=== PATIENT | male | born 1965 | race African-American/Black ===

== ENCOUNTER 2019-10-19 05:01 | Emergency (ER) | payer OTHER ==
[~2019-10-19] VITALS: Ht 170.2 cm; Wt 109.0 kg
[~2019-10-19 05:01] MED LIST: ASPI-630 PO; GLIP5TAB10 PO; LANS30CA PO; METF500T16 PO; PRAV20TA2 PO
[2019-10-19 05:50] VITALS: BP 141/78
--- NOTE | 2019-10-19 06:00 | PHYS DOC ---
Past Medical History Past Medical History: Arrhythmia, High Cholesterol, Hypertension Smoking Status: Current Every Day Smoker Alcohol Use: Rarely Drug Use: Marijuana Adult General Chief Complaint Chief Complaint: DIARRHEA HPI HPI Patient is a 53 year old male presents with a chief complaint of diarrhea. Patient states he had multiple episodes of diarrhea without blood yesterday. Patient denies any diarrhea today. Patient denies any associated abdominal d iscomfort. Patient states has associated generalized weakness. Patient was at work had significant generalized weakness so present to the emergency department for further evaluation. Review of Systems Review of Systems Constitutional: Denies fever or chills [] Eyes: Denies change in visual acuity, redness, or eye pain [] HENT: Denies nasal congestion or sore throat [] Respiratory: Denies cough or shortness of breath [] Cardiovascular: No additional information not addressed in HPI [] GI: Denies abdominal pain, nausea, vomiting, bloody stools positive diarrhea : Denies dysuria or hematuria [] Musculoskeletal: Denies back pain or joint pain [] Integument: Denies rash or skin lesions [] Neurologic: Denies headache, focal weakness or sensory changes [] Endocrine: Denies polyuria or polydipsia [] All other systems were reviewed and found to be within normal limits, except as documented in this note. Allergies Allergies Allergies Coded Allergies Type Severity Reaction Last Updated Verified No Known Drug Allergies 05/18/17 No Physical Exam Physical Exam Constitutional: Well developed, well nourished, no acute distress, non-toxic rachel earance. [] HENT: Normocephalic, atraumatic, bilateral external ears normal, oropharynx moist, no oral exudates, nose normal. [] Eyes: PERRLA, EOMI, conjunctiva normal, no discharge. [] Neck: Normal range of motion, no tenderness, supple, no stridor. [] Cardiovascular:Heart rate regular rhythm, no murmur [] Lungs & Thorax: Bilateral breath sounds clear to auscultation [] Abdomen: Bowel sounds normal, soft, no tenderness, no masses, no pulsatile masses. [] Skin: Warm, dry, no erythema, no rash. [] Back: No tenderness, no CVA tenderness. [] Extremities: No tenderness, no cyanosis, no clubbing, ROM intact, no edema. [] Neurologic: Alert and oriented X 3, normal motor function, normal sensory function, no focal deficits noted. [] Psychologic: Affect normal, judgement normal, mood normal. [] EKG EKG [] Radiology/Procedures Radiology/Procedures [] Course & Med Decision Making Course & Med Decision Making Pertinent Labs and Imaging studies reviewed. (See chart for details) []Agent was evaluated for chief complaint. Based upon history of present illness and physical exam no emergent labs are imaging ordered. Patient was encouraged to increase by mouth fluids. Patient was discharged home with a work excuse advised to follow up with primary care physician in 2-3 days. Dragon Disclaimer Dragon Disclaimer This electronic medical record was generated, in whole or in part, using a voice recognition dictation system. Departure Departure Impression: Primary Impression: Diarrhea Disposition: HOME, SELF-CARE Condition: STABLE Referrals: NO PCP (PCP) Patient Instructions: Diarrhea KEVIN CLEVELAND DO Oct 19, 2019 06:00
== END 2019-10-19 06:18 | disposition home or self-care (01) ==
LOC: ER 05:01
DX: R19.7 Diarrhea, unspecified (principal); R53.1 Weakness; I49.8 Other specified cardiac arrhythmias; E78.00 Pure hypercholesterolemia, unspecified; I10 Essential (primary) hypertension; F12.90 Cannabis use, unspecified, uncomplicated; F17.200 Nicotine dependence, unspecified, uncomplicated
CPT/HCPCS: 99281

== ENCOUNTER 2021-01-06 18:36 | Emergency (ER) | payer BC ==
[~2021-01-06] VITALS: Ht 168.9 cm; Wt 104.0 kg
[2021-01-06] MEDS ORDERED: cloNIDine HCL 0.1 MG TABLET PO ONE (20:00)
--- NOTE | 2021-01-06 20:29 | PHYS DOC ---
Past Medical History Past Medical History: Hypertension Additional Past Medical Histor: htn previously controlled by weight loss Past Surgical History: Other Additional Past Surgical Histo: CARDIAC ablation Smoking Status: Current Every Day Smoker Alcohol Use: None Drug Use: Marijuana General Adult EDM: Chief Complaint: VISION PROBLEM HPI: HPI: Patient is a 55 year old male presented to ER due to headache, blurry vision off and on for several weeks. Patient was evaluated here on December 31, 2020 for the same problem, he had a CT scan his head was normal. Patient also had lab work done, did not show any acute problem. Patient has history of migraine headache and diabetic. Patient was advised to follow-up with eye doctor for further evaluation. Somehow he had not done yet. Patient came back today because of headache and blurry vision. This is not the worst headache of his life. Denies any cough or fever. Patient denies any chest pain, no abdominal pain. Patient says sometimes he see black spots or floaters on the right eye. Patient does wear contact lens Review of Systems: Review of Systems: Constitutional: Denies fever or chills. [] Eyes: Positive for blurry vision on The right eye HENT: Denies nasal congestion or sore throat. [] Respiratory: Denies cough or shortness of breath. [] Cardiovascular: Denies chest pain or edema. [] GI: Denies abdominal pain, nausea, vomiting, bloody stools or diarrhea. [] : Denies dysuria. [] Musculoskeletal: Denies back pain or joint pain. [] Integument: Denies rash. [] Neurologic: Positive for headache, no focal weakness or numbness. Endocrine: Denies polyuria or polydipsia. [] Lymphatic: Denies swollen glands. [] Psychiatric: Denies depression or anxiety. [] Heart Score: C/O Chest Pain: N/A Risk Factors: Risk Factors: DM, Current or recent (<one month) smoker, HTN, HLP, family history of CAD, obesity. Risk Scores: Score 0 - 3: 2.5% MACE over next 6 weeks - Discharge Home Score 4 - 6: 20.3% MACE over next 6 weeks - Admit for Clinical Observation Score 7 - 10: 72.7% MACE over next 6 weeks - Early Invasive Strategies Current Medications: Current Medications Medications (Trade) Dose Ordered Sig/Corinna Start Time Stop Time Status Last Admin Dose Admin Clonidine HCl (Catapres) 0.2 mg 1X ONCE 01/06/21 20:00 01/06/21 20:01 DC 01/06/21 20:04 0.2 MG Allergies: Allergies: Allergies Coded Allergies Type Severity Reaction Last Updated Verified No Known Drug Allergies 05/18/17 No Physical Exam: PE: Constitutional: Well developed, well nourished, no acute distress, non-toxic appearance. [] HENT: Normocephalic, atraumatic, bilateral external ears normal, oropharynx moist, no oral exudates, nose normal. [] Eyes: PERRLA, EOMI, conjunctiva normal, no discharge. [] Neck: Normal range of motion, no tenderness, supple, no stridor. [] Cardiovascular:Heart rate regular rhythm, no murmur [] Lungs & Thorax: Bilateral breath sounds clear to auscultation [] Abdomen: Bowel sounds normal, soft, no tenderness, no masses, no pulsatile m asses. [] Skin: Warm, dry, no erythema, no rash. [] Back: No tenderness, no CVA tenderness. [] Extremities: No tenderness, no cyanosis, no clubbing, ROM intact, no edema. [] Neurologic: Alert and oriented X 3, normal motor function, normal sensory function, no focal deficits noted. [] Psychologic: Affect normal, judgement normal, mood normal. [] Current Patient Data: Vital Signs: Vital Signs Date Time Temp Pulse Resp B/P (MAP) Pulse Ox O2 Delivery O2 Flow Rate FiO2 01/06/21 20:04 84 183/95 01/06/21 18:40 99.1 18 96 Room Air 99.1 EKG: EKG: [] Radiology/Procedures: Radiology/Procedures: [] Course & Med Decision Making: Course & Med Decision Making Pertinent Labs and Imaging studies reviewed. (See chart for details) This physician did a bedside ultrasound of right eyeball, There is no obvious retinal detachment observed. Discussed with the opthalmologist traffic division commanding officer, Dr. Robertson who recommended to discharge patient home, will see him in clinic this week. Patient's blood pressure was elevated, will pescribe low dose of norvasc. He will need to find a family physician for follow up. Patient was just seen here on December 31, 2020, had normal lab work and CT scan his head, there is no need for further evaluation at this time in the ER. Tomeka Disclaimer: Tomeka Disclaimer: This electronic medical record was generated, in whole or in part, using a voice recognition dictation system. Departure Departure Impression: Primary Impression: Hypertension Additional Impression: Blurry vision, right eye Disposition: HOME / SELF CARE / HOMELESS Condition: STABLE Referrals: NO PCP (PCP) Please call this EYE DOCTOR BELOW FOR FOLLOW UP IN 1-[address] Oren Robertson [address] [facility] [address] [place]. [address] Patient Instructions: Eye - Blurred Vision, Hypertension Additional Instructions: Thank you for visiting our Emergency Department. We appreciate you trusting us with your care. If any additional problems come up don't hesitate to return to visit us. Please follow up with your primary care provider so they can plan additional care if needed and know about the problem that you had. If symptoms worsen come back to the Emergency Department. Any concerning symptoms that start such as chest pain, shortness of air, weakness or numbness on one side of the body, running high fevers or any other concerning symptoms return to the ER. Please follow up with [facility] this week to reevaluate your blood pressure issue. [address] [facility], [address] [place] [address] Phone number: [phone] Scripts Amlodipine Besylate (NORVASC) 5 Mg Tablet 1 TAB PO DAILY, #30 TAB 1 Refill Prov: LYSSA ORTEGA DO 01/06/21 LYSSA ORTEGA DO January 06, 2021 20:29
[2021-01-06] MEDS ORDERED: AMLO5TAB4 PO ×2 (20:36→20:42)
[2021-01-06 21:10] VITALS: BP 153/91
== END 2021-01-06 21:12 | disposition home or self-care (01) ==
LOC: ER 18:36
DX: I10 Essential (primary) hypertension (principal); H53.8 Other visual disturbances; G43.909 Migraine, unspecified, not intractable, without status migrainosus; E11.9 Type 2 diabetes mellitus without complications; F17.200 Nicotine dependence, unspecified, uncomplicated
CPT/HCPCS: 99283

== ENCOUNTER 2021-02-09 18:06 | Emergency (ER) | payer BC ==
[~2021-02-09] VITALS: Ht 170.2 cm; Wt 96.6 kg
[~2021-02-09 18:06] MED LIST changes: +AMLO5TAB4 PO; +EMPA10TA PO; +GLIM4TAB8 PO; +LIPITOR80 MG PO; +LISI10TA16 PO; +[UNRECOGNIZED DRUG - CODE] OP
[2021-02-09] MEDS ORDERED: ONDANSETRON PF 4 MG/2 ML VIAL. IVP ONE (18:15)
[2021-02-09 18:35] LABS: BASO # 0.1 x10^3/uL (0.0-0.2); BASO % 1 % (0-3); EOS # 0.1 x10^3/uL (0.0-0.7); EOS % 1 % (0-3); HEMATOCRIT 40.4 % (39.0-53.0); HEMOGLOBIN 13.8 g/dL (13.0-17.5); LYMPH # 2.9 x10^3/uL (1.0-4.8); LYMPH % 17 % (24-48); MEAN CORPUSCULAR HEMOGLOBIN 33 pg (25-35); MEAN CORPUSCULAR HGB CONC 34 g/dL (31-37); MEAN CORPUSCULAR VOLUME 97 fL (79-100); MONO # 1.1 x10^3/uL (0.0-1.1); MONO % 6 % (0-9); NEUT # 13.2 x10^3/uL (1.8-7.7); NEUT % 76 % (31-73); PLATELET COUNT 305 x10^3/uL (140-400); RED BLOOD COUNT 4.17 x10^6/uL (4.30-5.70); WHITE BLOOD COUNT 17.5 x10^3/uL (4.0-11.0)
--- NOTE | 2021-02-09 18:43 | ED.ADGEN ---
Past Medical History Past Medical History: Diabetes-Type II, Hypertension Additional Past Medical Histor: htn previously controlled by weight loss Past Surgical History: Other Additional Past Surgical Histo: CARDIAC ablation Smoking Status: Current Every Day Smoker Alcohol Use: None Drug Use: Marijuana General Adult EDM: Chief Complaint: NEURO SYMPTOMS/DEFICITS HPI: HPI: Patient is a 55-year-old male who presents to the emergency room complaining of a sudden onset of dizziness with vomiting that started 40 minutes prior to arrival. He states when it did start he did have a headache at that time. He states this feels very similar to 2 weeks ago when he came in with the symptoms and was found to have a stroke. His MRI at that time showed multiple acute strokes. He states that he has been doing well all week without any symptoms. He states he was just hanging out when the symptoms started. He has had multiple episodes of vomiting since it started. His headache was a dull headache initially in his completely gone away. Review of Systems: Review of Systems: Complete ROS is negative unless otherwise documented in HPI Current Medications: Current Medications Medications (Trade) Dose Ordered Sig/Corinna Start Time Stop Time Status Last Admin Dose Admin Iohexol (Omnipaque 350 Mg/ml) 75 ml 1X ONCE 02/09/21 18:45 02/09/21 18:46 DC 02/09/21 18:48 75 ML Metoclopramide HCl (Reglan Vial) 10 mg STK-MED ONCE 02/09/21 18:49 02/09/21 18:50 DC Ondansetron HCl (Zofran) 4 mg 1X ONCE 02/09/21 18:15 02/09/21 18:20 DC 02/09/21 18:31 4 MG Allergies: Allergies: Allergies Coded Allergies Type Severity Reaction Last Updated Verified No Known Drug Allergies 05/18/17 No Physical Exam: PE: General: Awake, alert, mild distress, diaphoretic HEENT: Atraumatic, EOMI, PERRL, airway patent, moist oral mucosa Neck: Supple, trachea midline Respiratory: CTA bilaterally, normal effort, no wheezing/crackles CV: Tachycardic, no murmur, cap refill <2 GI: Soft, nondistended, nontender, no masses MSK: No obvious deformities Skin: Warm, dry, intact Neuro: A&O x3, speech NL, 5/5 strength in BUE/BLE distally and proximally, CN 2- 12 intact Psych: Normal affect, normal mood, not suicidal or homicidal Current Patient Data: Labs: Laboratory Tests Test 02/09/21 18:24 White Blood Count 17.5 x10^3/uL (4.0-11.0) H Red Blood Count 4.17 x10^6/uL (4.30-5.70) L Hemoglobin 13.8 g/dL (13.0-17.5) Hematocrit 40.4 % (39.0-53.0) Mean Corpuscular Volume 97 fL (79-100) Mean Corpuscular Hemoglobin 33 pg (25-35) Mean Corpuscular Hemoglobin Concent 34 g/dL (31-37) Red Cell Distribution Width 13.0 % (11.5-14.5) Platelet Count 305 x10^3/uL (140-400) Neutrophils (%) (Auto) 76 % (31-73) H Lymphocytes (%) (Auto) 17 % (24-48) L Monocytes (%) (Auto) 6 % (0-9) Eosinophils (%) (Auto) 1 % (0-3) Basophils (%) (Auto) 1 % (0-3) Neutrophils # (Auto) 13.2 x10^3/uL (1.8-7.7) H Lymphocytes # (Auto) 2.9 x10^3/uL (1.0-4.8) Monocytes # (Auto) 1.1 x10^3/uL (0.0-1.1) Eosinophils # (Auto) 0.1 x10^3/uL (0.0-0.7) Basophils # (Auto) 0.1 x10^3/uL (0.0-0.2) Segmented Neutrophils % 69 % (35-66) H Band Neutrophils % 3 % (0-9) Lymphocytes % 19 % (24-48) L Monocytes % 8 % (0-10) Eosinophils % 1 % (0-5) Platelet Estimate Adequate (ADEQUATE) Sodium Level 140 mmol/L (136-145) Potassium Level 4.2 mmol/L (3.5-5.1) Chloride Level 101 mmol/L (98-107) Carbon Dioxide Level 27 mmol/L (21-32) Anion Gap 12 (6-14) Blood Urea Nitrogen 16 mg/dL (8-26) Creatinine 1.5 mg/dL (0.7-1.3) H Estimated GFR (Cockcroft-Gault) 58.6 BUN/Creatinine Ratio 11 (6-20) Glucose Level 195 mg/dL (70-99) H Calcium Level 9.7 mg/dL (8.5-10.1) Total Bilirubin 0.4 mg/dL (0.2-1.0) Aspartate Amino Transferase (AST) 20 U/L (15-37) Alanine Aminotransferase (ALT) 26 U/L (16-63) Alkaline Phosphatase 79 U/L (46-116) Troponin I Quantitative < 0.017 ng/mL (0.000-0.055) Total Protein 8.3 g/dL (6.4-8.2) H Albumin 3.8 g/dL (3.4-5.0) Albumin/Globulin Ratio 0.8 (1.0-1.7) L Ethyl Alcohol Level < 10 mg/dL (0-10) Laboratory Tests 02/09/21 18:24 Laboratory Tests 02/09/21 18:24 Vital Signs: Vital Signs Date Time Temp Pulse Resp B/P (MAP) Pulse Ox O2 Delivery O2 Flow Rate FiO2 02/09/21 19:59 100 22 154/85 (108) 100 Room Air 02/09/21 18:10 96.6 96.6 EKG: EKG: [] Heart Score: C/O Chest Pain: N/A Risk Factors: Risk Factors: DM, Current or recent (<one month) smoker, HTN, HLP, family history of CAD, obesity. Risk Scores: Score 0 - 3: 2.5% MACE over next 6 weeks - Discharge Home Score 4 - 6: 20.3% MACE over next 6 weeks - Admit for Clinical Observation Score 7 - 10: 72.7% MACE over next 6 weeks - Early Invasive Strategies Radiology/Procedures: Radiology/Procedures: [] Course & Med Decision Making: Course & Med Decision Making Pertinent Labs and Imaging studies reviewed. (See chart for details) Patient is a 55-year-old male with a history of CVA who presents the emergency room with neurologic complaints concerning for posterior stroke. On exam, patient has severe dizziness, inability to complete cerebellar testing, vomiting. Patient's presentation is concerning for acute stroke. Stroke protocol was set off and the patient was taken for a CT head. Glucose is normal at this time. Patient will be evaluated by neurology. CBC, BMP, magnesium, troponin, EKG were ordered to evaluate for other causes of symptoms and risk factors for stroke. Patient's blood pressure is controlled at this time. Patient is within the three-hour TPA window. Patient does have any contraindication to tPA. Given that patient had a stroke 2 weeks ago he is not a TPA candidate and TPA will not be given. CT angiogram head and neck was ordered. 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 I have discussed the case with neurology and they will accept him as a patient there for possible intervention. While in the emergency room patient declined. He initially had an NIH score of 2. NIH score at this time is now 14. He does continue to maintain his airway [place] [facility] [place]: [place] Disclaimer: This electronic medical record was generated, in whole or in part, using a voice recognition dictation system. Critical Care Time Critical Care: Authorized and Performed by: Keya Bobby MD Total critical care time: approximately 60 minutes Due to a high probability of clinically significant, life threatening deterior ation, the patient required my highest level of preparedness to intervene emergently and I personally spent this critical care time directly and personally managing the patient. This critical care time included obtaining a history; examining the patient; pulse oximetry; ventilator management if nece ssary; ordering and review of studies; arranging urgent treatment with development of a management plan; evaluation of patient's response to treatment; frequent reassessment; discussion with patient/family; and, discussions with other providers. This critical care time was performed to assess and manage the high probability of imminent, life-threatening deterioration that could result in multi-organ failure. It was exclusive of separately billable procedures and treating other patients and teaching time. Please see MDM section and the rest of the note for further information on patient assessment and treatment. Departure Departure Impression: Primary Impression: CVA (cerebral vascular accident) Additional Impression: Vertebral artery embolism Disposition: 02 SHORT TERM HOSPITAL Condition: GUARDED Referrals: NO PCP (PCP) Problem Qualifiers KEYA BOBBY MD Feb 09, 2021 18:43
[2021-02-09 18:44] LABS: CALCIUM 9.7 mg/dL (8.5-10.1); CREATININE 1.5 mg/dL (0.7-1.3); GFR 58.6; POTASSIUM 4.2 mmol/L (3.5-5.1)
[2021-02-09] MEDS ORDERED: IOHEXOL 350 MG/ML 100 ML VIAL. IV ONE (18:45)
[2021-02-09] MEDS ORDERED: METOCLOPRAMIDE HCL 10 MG/2 ML VIAL. ONE (18:49)
[2021-02-09 18:51] LABS: ALBUMIN 3.8 g/dL (3.4-5.0); ALBUMIN/GLOBULIN RATIO 0.8 (1.0-1.7); TOTAL BILIRUBIN 0.4 mg/dL (0.2-1.0); TOTAL PROTEIN 8.3 g/dL (6.4-8.2)
[2021-02-09] MEDS ORDERED: METOCLOPRAMIDE HCL 10 MG/2 ML VIAL. IVP ONE (19:00)
--- NOTE | 2021-02-09 19:46 | RAD ---
Exam: CT head. CTA head and neck INDICATION: Stroke like symptoms TECHNIQUE: Sequential axial images through the head were obtained without the administration of IV co ntrast. Sequential axial images through the head and neck were obtained following the administration of 75 mL of Isovue-370. 3-D reformatted images were reconstructed from the axial data and reviewed. Exposure: One or more of the following in the visualized dose reduction techniques were utilized for this examination: 1. Automated exposure control 2. Adjustment of the MA and/or KV according to patient size 3. Use of iterative of reconstructive technique Comparisons: MRI brain 01/25/2021 FINDINGS: Head: There is no midline shift or sulcal effacement. No acute hemorrhage. Subacute appearing infarct at the medial left occipital lobe. Additionally there is the subacute infa rct at the right occipital lobe again seen. Mabry-white distinction is preserved. The ventricular system is within normal limits without compression hydrocephalus. The basal cisterns are well maintained. The visualized portions of the paranasal sinuses and mastoid air cells are well-pneumatized. No acute fractures. CTA neck: Visualized portions of the thoracic aorta are unremarkable. Standard three-vessel aortic arch anatomy . Right common carotid artery is patent without evidence of stenosis, occlusion or aneurysm. Cervical s egment of the right internal carotid artery is patent without evidence of stenosis, occlusion or aneu rysm. Left common carotid artery is patent without evidence of stenosis, occlusion or aneurysm. Cervical se gment of the right internal carotid artery is patent without evidence of stenosis, occlusion or aneur ysm. Right vertebral artery is patent to the mid V4 segment with acute cut off seen on series 3 image 200. Left vertebral artery is patent to the basilar confluence. The most distal portion of the left verteb ral artery is likely occluded. CTA HEAD: The proximal segment of the basilar artery is occluded with re-opacification seen at the mid basilar artery seen on series 3 image 215. Intracranial segments of the right internal carotid artery are patent without evidence of stenosis, o cclusion or aneurysm. Right MCA is patent. Right JASMYNE is patent. Intracranial segments of the left internal carotid artery are patent without evidence of stenosis, oc clusion or aneurysm. Left MCA is patent. Left JASMYNE is patent. IMPRESSION: 1. Interval development of occlusion involving the inferior basilar artery and the superior segment of the vertebral arteries bilaterally. This is new when compared to the study on 01/24/2021 2. Subacute infarcts of the right and left occipital lobes noted. FOR INTERNAL CODING PURPOSES Critical result: Findings discussed with Dr. Bobby at 02/09/2021 7:28 PM. RESULT CODE: (C) Electronically signed by: Clair Shine MD (02/09/2021 7:44 PM) [facility]
[2021-02-09 19:59] VITALS: BP 154/85
[2021-02-09 20:10] LABS: % BANDS 3 % (0-9); % EOS 1 % (0-5); % LYMPHS 19 % (24-48); % MONOS 8 % (0-10); % SEGS 69 % (35-66); PLT ESTIMATE ADEQUATE (ADEQUATE)
--- NOTE | 2021-02-10 02:19 | EKG ---
[facility] [address] [place] [address] Test Date: 2021-02-09 Test Time: 18:18:57 Pat Name: JONAH GARBER Department: Room: Gender: Security Sme: : 1965 Requested By: JAMES BALLARD Order Number: [id number] Reading MD: Measurements Intervals [place] Rate: 104 P: 43 MS: 156 QRS: -14 QRSD: 78 T: 39 QT: 308 QTc: 411 Interpretive Statements SINUS TACHYCARDIA LEFTWARD AXIS OTHERWISE NORMAL ECG RI6.01 No previous ECG available for comparison
--- NOTE | 2021-03-10 09:36 | EKG ---
[facility] [address] [place] [address] Test Date: 2021-02-09 Test Time: 18:18:57 Pat Name: JONAH GARBER Department: Room: Gender: M Communications Programmer: : 1965 Requested By: JAMES BALLARD Order Number: [id number] Reading MD: Measurements Intervals [place] Rate: 104 P: 43 SC: 156 QRS: -14 QRSD: 78 T: 39 QT: 308 QTc: 411 Interpretive Statements SINUS TACHYCARDIA LEFTWARD AXIS OTHERWISE NORMAL ECG RI6.01 Compared to ECG 01/24/2021 18:16:31 Left-axis deviation now present Sinus rhythm no longer present
== END 2021-02-09 20:05 | disposition short-term general hospital (02) ==
LOC: ER 18:06
DX: I63.9 Cerebral infarction, unspecified (principal); I65.09 Occlusion and stenosis of unspecified vertebral artery; E11.9 Type 2 diabetes mellitus without complications; I10 Essential (primary) hypertension; F17.200 Nicotine dependence, unspecified, uncomplicated
CPT/HCPCS: 36415; 70450; 70496; 70498; 80053; 84484; 85007; 85025; 93005; 96374; 96375; 99291; G0480; J2405; J2765; Q9967